=== PATIENT | female | born 1945 | race Caucasian/White ===

== ENCOUNTER 2018-07-08 10:03 | Observation (INO) | payer MEDICARE, OTHER ==
[~2018-07-08 10:03] MED LIST: DEXAMETHASONE 4 MG/ML 1 ML INJ; LIDOCAINE 2% (SDV) 5 ML INJ
[2018-07-08] MEDS ORDERED: SODIUM CL BACTERIOSTATIC 30 ML INJ (12:04)
[2018-07-08] MEDS: SURGIFOAM POWDER 1 GM KIT (12:04)
[2018-07-08] MEDS: BUPIVACAINE 0.25%/EPI (SDV) 30 ML INJ (12:04)
[2018-07-08] MEDS: CA CHLORIDE 10% 10 ML SYRINGE (12:05)
[2018-07-08] MEDS: THROMBIN 5000 UNIT VIAL (12:05)
[2018-07-08] MEDS: POLYMYXIN/BACITRACIN 1L IRRIG (12:05)
[2018-07-08] MEDS: HEPARIN 1000 UNITS/ML 10 ML INJ (12:05)
[2018-07-08] MEDS ORDERED: ONDANSETRON 4 MG INJ IV ×2 (13:00→15:30)
[2018-07-08] MEDS ORDERED: AL HYDROX/MG HYDROX/SIMETH 30 ML CUP PO (13:00)
[2018-07-08] MEDS ORDERED: NALOXONE (0.4 MG/ML) INJ IV (13:00)
[2018-07-08] MEDS ORDERED: DIPHENHYDRAMINE 50 MG INJ IV ×2 (13:00→15:30)
[2018-07-08] MEDS ORDERED: BISACODYL 10 MG SUPP PR (13:00)
[2018-07-08] MEDS ORDERED: ACETAMINOPHEN 325 MG TAB PO (13:00)
[2018-07-08] MEDS ORDERED: ROCURONIUM 50 MG INJ (15:17)
[2018-07-08] MEDS ORDERED: PROPOFOL 20 ML (15:17)
[2018-07-08] MEDS ORDERED: ACETAMINOPHEN 1000MG/100ML IV 100 ML (15:17)
[2018-07-08] MEDS ORDERED: ONDANSETRON 4 MG INJ (15:17)
[2018-07-08] MEDS ORDERED: DEXAMETHASONE 4 MG/ML 1 ML INJ (15:17)
[2018-07-08] MEDS ORDERED: KETOROLAC 30 MG INJ (15:17)
[2018-07-08] MEDS ORDERED: MEPERIDINE 25 MG INJ IV (15:30)
[2018-07-08] MEDS ORDERED: LABETALOL HCL 20MG INJ IV (15:30)
[2018-07-08] MEDS ORDERED: hydrALAzine 20 MG INJ IV (15:30)
[2018-07-08] MEDS ORDERED: KETOROLAC 30 MG INJ IV (15:30)
[2018-07-08] MEDS ORDERED: HYDROmorphONE 1 MG/5 ML IV SYRINGE IV ×3 (15:30)
[2018-07-08] MEDS ORDERED: EPHEDrine SULFATE 50 MG/5 ML SYG IV (15:30)
[2018-07-08] MEDS ORDERED: ALBUTEROL 0.083% (NEB) 2.5 MG/3 ML AMP HHN (15:30)
[2018-07-08] MEDS ORDERED: METOCLOPRAMIDE 10 MG INJ IV (15:30)
[2018-07-08] MEDS ORDERED: OXYCODONE/ACETAMINOPHEN (5/325) TAB PO ×2 (15:30)
[2018-07-08] MEDS ORDERED: FENTAnyl 50 MCG/ML VIAL IV ×2 (15:30)
[2018-07-08] MEDS ORDERED: MIDAZOLAM 1 MG/ML 2 ML INJ IV (15:30)
[2018-07-08] MEDS: FENTAnyl 50 MCG/ML VIAL IV ×2 (15:55→16:04)
[2018-07-08] MEDS: HYDROmorphONE 0.2 MG/ML PCA IV (15:59)
[2018-07-08] MEDS: D5W-0.45 NACL + KCL 20 MEQ 1,000 ML IV ×2 (16:58→22:35)
[2018-07-08] MEDS ORDERED: hydrOXYzine HCL 10 MG TAB PO (17:00)
[2018-07-08] MEDS: HYDROmorphONE 0.5 MG/0.5 ML SYG IV (19:02)
[2018-07-08] MEDS: CEFAZOLIN 1 GM/50 ML (PMX) 50 ML IVPB ×2 (21:00→21:36)
[2018-07-08] MEDS: DOCUSATE SODIUM 100 MG CAP PO (21:36)
[2018-07-08] MEDS: ATORVASTATIN 10 MG TAB PO (21:37)
[2018-07-08] MEDS: CEPASTAT LOZENGE MT (21:37)
[2018-07-08] MEDS: THIAMINE 100 MG TAB PO (21:41)
[2018-07-08] MEDS: CYCLOBENZAPRINE 10 MG TAB PO (23:21)
[2018-07-09] MEDS: ZOLPIDEM 5 MG TAB PO (00:07)
[2018-07-09] MEDS: D5W-0.45 NACL + KCL 20 MEQ 1,000 ML IV (03:12)
[2018-07-09 05:00] LABS: ADD MAN DIFF? NO
[2018-07-09 05:15] LABS: WHITE BLOOD COUNT 9.4 10^3/ul (4.8-10.8)
[2018-07-09 05:15] LABS: BASOPHILS % 0.1 % (0.0-2.0); EOSINOPHILS % 0.1 % (0.0-7.0); HEMATOCRIT 31.5 % (37.0-47.0); HEMOGLOBIN 10.3 g/dl (12.0-16.0); LYMPHOCYTES # 1.3 10^3/ul (0.8-2.9); LYMPHOCYTES % 14.2 % (15.0-51.0); MEAN CORPUSCULAR HEMOGLOBIN 33.3 pg (29.0-33.0); MEAN CORPUSCULAR HGB CONC 32.7 g/dl (32.0-37.0); MEAN CORPUSCULAR VOLUME 101.9 fl (82.0-101.0); MEAN PLATELET VOLUME 11.7 fl (7.4-10.4); MONOCYTE # 0.6 10^3/ul (0.3-0.9); NEUTROPHIL # 7.4 10^3/ul (1.6-7.5); NEUTROPHILS % 79.3 % (39.0-77.0); PLATELET COUNT 207 10^3/UL (140-415); RED BLOOD COUNT 3.09 10^6/ul (4.20-5.40); RED CELL DISTRIBUTION WIDTH 12.8 % (11.5-14.5)
[2018-07-09 05:22] LABS: ANION GAP 5 (5-13); BLOOD UREA NITROGEN 12 mg/dl (7-20); CALCIUM 8.7 mg/dl (8.4-10.2); CARBON DIOXIDE 28 mmol/L (21-31); CHLORIDE 103 mmol/L (97-110); CREATININE 0.54 mg/dl (0.44-1.00); GLUCOSE 141 mg/dl (70-220); MAGNESIUM 1.9 mg/dl (1.7-2.5); POTASSIUM 4.8 mmol/L (3.5-5.1); SODIUM 136 mmol/L (135-144)
[2018-07-09] MEDS: CEFAZOLIN 1 GM/50 ML (PMX) 50 ML IVPB (05:56)
[2018-07-09] MEDS: DOCUSATE SODIUM 100 MG CAP PO (08:38)
[2018-07-09] MEDS: THIAMINE 100 MG TAB PO (08:38)
[2018-07-09] MEDS: HYDROCODONE/APAP (10/325) TAB PO ×2 (08:39→12:24)
[2018-07-09] MEDS ORDERED: HYDROCODONE/APAP (10/325) TAB PO ×3 (09:30→10:00)
[2018-07-09] MEDS ORDERED: LACTATED RINGER'S 500 ML IV (11:30)
[2018-07-09] MEDS: LACTATED RINGER'S 500 ML IV (12:08)
== END 2018-07-09 16:15 | disposition home or self-care (01) ==
LOC: REC 10:03 → MS1 16:29
DX: M48.07 Spinal stenosis, lumbosacral region (principal); M41.87 Other forms of scoliosis, lumbosacral region; M54.17 Radiculopathy, lumbosacral region; E78.5 Hyperlipidemia, unspecified; L50.9 Urticaria, unspecified
CPT/HCPCS: 63047; 72100; 80048; 83735; 85025; 86999; 97116; 97161